=== PATIENT | male | born 1985 | race Caucasian/White ===

== ENCOUNTER → 2021-11-11 | Outpatient (CLI) | payer BC ==
--- NOTE | 2021-11-12 11:26 | XR ---
EXAMINATION TYPE: XR chest 2V DATE OF EXAM: 11/11/2021 4:28 PM COMPARISON:None TECHNIQUE: XR chest 2V Frontal and lateral views of the chest. CLINICAL INDICATION:Male, 36 years old with history of U07.1 R05.9 R50.9; FINDINGS: Lungs/Pleura: There is no evidence of pleural effusion, focal consolidation, or pneumothorax. Pulmonary vascularity: Unremarkable. Heart/mediastinum: Cardiomediastinal silhouette is unremarkable. Musculoskeletal: No acute osseous pathology. IMPRESSION: No acute cardiopulmonary disease/process.
== END | disposition home or self-care (01) ==
LOC: RADXRMAIN 16:17
PROVIDERS: ATTEND Pediatrics
DX: U07.1 COVID-19 (principal)
CPT/HCPCS: 71046